=== PATIENT | female | born 1990 | race American Indian/Alaskan Native ===

== ENCOUNTER 2019-08-07 02:04 | Inpatient (IN) | payer OTHER ==
[2019-08-07] MEDS ORDERED: STADOL IV PRN (02:58)
[2019-08-07] MEDS ORDERED: NARCAN 0.4 MG/1 ML IV PRN (02:58)
[2019-08-07] MEDS ORDERED: MINERAL OIL PO PRN (02:58)
[2019-08-07] MEDS ORDERED: BRETHINE SUB-Q PRN (02:58)
[2019-08-07] MEDS ORDERED: SUBLIMAZE IV PRN (02:58)
[2019-08-07] MEDS ORDERED: ZOFRAN IV PRN ×2 (02:58→14:31)
[2019-08-07] MEDS ORDERED: BRETHINE IVP PRN (02:58)
[2019-08-07] MEDS ORDERED: XYLOCAINE 2% INFILTRATI ONE (02:58)
[2019-08-07] MEDS ORDERED: PITOCin/NS 20 UNIT/1000ML DRIP 20 UNITS/1,000 ML BAG IV SCH (03:00)
[2019-08-07] MEDS ORDERED: AMPICILLIN/NS 2 GM/100 ML 2 GM/100 ML BAG IV ONE ×2 (03:52→03:54)
[2019-08-07] MEDS: LACTATED RINGERS 1,000 ML IV SCH ×2 (04:05→06:27)
[2019-08-07 04:35] LABS: Hematocrit 38.4 % (30.3-42.9); Hemoglobin 13.3 gm/dl (10.1-14.3); Mean Corpuscular HGB Conc 35 % (30-34); Mean Corpuscular Volume 98 fl (79-97); Platelet Count 188 K/mm3 (140-440); Red Blood Count 3.91 M/mm3 (3.65-5.03); Red Cell Distribution Width 13.9 % (13.2-15.2)
[2019-08-07 04:47] LABS: Bilirubin,Urine NEG (Negative); Blood,Urine NEG (Negative); Calcium Oxalate Crystals,Urine 1+; Color,Urine Yellow (Yellow); Mucus,Urine 1+ /HPF; Protein,Urine <15 mg/dL mg/dL (Negative); Urobilinogen,Urine < 2.0 mg/dL (<2.0)
[2019-08-07] MEDS ORDERED: NARCAN 2 MG/2 ML IV PRN (05:47)
--- NOTE | 2019-08-07 05:47 | Anesthesia Consultation ---
Anesthesia Consult and Med Hx Date of service: 08/07/19 - Airway Anesthetic Teeth Evaluation: Good ROM Head & Neck: Adequate Mental/Hyoid Distance: Adequate Mallampati Class: Class II Intubation Access Assessment: Probably Good - Pulmonary Exam CTA: Yes - Cardiac Exam Cardiac Exam: RRR - Pre-Operative Health Status ASA Pre-Surgery Classification: ASA2 Proposed Anesthetic Plan: Epidural - Pulmonary Hx Asthma: No - Cardiovascular System Hx Hypertension: No - Central Nervous System Hx Seizures: No Hx Psychiatric Problems: No - Endocrine Hx Renal Disease: No Hx Hypothyroidism: No Hx Hyperthyroidism: No - Hematic Hx Anemia: No Hx Sickle Cell Disease: No - Other Systems Hx Alcohol Use: No
[2019-08-07] MEDS ORDERED: fentaNYL-BUPIV 2 MCG/ML-0.125% 200 MCG/100 ML BAG EPIDURAL SCH (06:00)
[2019-08-07] MEDS ORDERED: PITOCin/NS 30 UNIT/500ML 30 UNITS/500 ML BAG IV SCH (07:00)
--- NOTE | 2019-08-07 12:36 | History and Physical Report ---
History of Present Illness Date of examination: 08/07/19 Date of admission: 08/07/19 03:41 Chief complaint: labor History of present illness: This is a 29 yo at 40+4 weeks here for labor. She was seen by . Past History - Obstetrical History : 3 Medications and Allergies Allergies Allergy/AdvReac Type Severity Reaction Status Date / Time No Known Allergies Allergy Verified 08/07/19 03:06 Home Medications Medication Instructions Recorded Confirmed Last Taken Type Ferrous Sulfate 1 tab DAILY 08/07/19 08/07/19 1 Day Ago History ~08/06/19 Vitamin 1 tab PO DAILY 08/07/19 08/07/19 1 Day Ago History ~08/06/19 valACYclovir [Valtrex] 1 tab PO DAILY 08/07/19 08/07/19 1 Day Ago History ~08/06/19 Active Meds: Active Medications Butorphanol Tartrate (Stadol) 2 mg IV Q2H PRN PRN Reason: Pain , Severe (7-10) Ephedrine Sulfate (Ephedrine Sulfate) 10 mg IV Q2M PRN PRN Reason: Hypotension Fentanyl (Sublimaze) 100 mcg IV Q2H PRN PRN Reason: Labor Pain Last Admin: 08/07/19 04:25 Dose: 100 mcg Documented by: Oxytocin/Sodium Chloride (Pitocin/Ns 20 Unit/1000ml Drip) 20 units in 1,000 mls @ 125 mls/hr IV DIRECT TIFFANY Oxytocin/Sodium Chloride (Pitocin/Ns 30 Unit/500ml) 30 units in 500 mls @ 2 mls/hr IV TITR TIFFANY; Protocol Last Titration: 08/07/19 09:52 Dose: 8 ml/hr, 8 mls/hr Documented by: Lactated Ringer's (Lactated Ringers) 1,000 mls @ 125 mls/hr IV DIRECT TIFFANY Last Admin: 08/07/19 06:27 Dose: 125 mls/hr Documented by: Fentanyl/Bupivacaine/Sodium Chlor (Fentanyl-Bupiv 2 Mcg/Ml-0.125%) 200 mcg in 100 mls @ 12 mls/hr EPIDURAL TITR TIFFANY; Protocol Last Admin: 08/07/19 06:22 Dose: 12 mls/hr Documented by: Mineral Oil (Mineral Oil) 30 ml PO QHS PRN PRN Reason: Constipation Naloxone HCl (Narcan 2 Mg/2 Ml) 0.2 mg IV Q5M PRN PRN Reason: Respiratory sedation Ondansetron HCl (Zofran) 4 mg IV Q8H PRN PRN Reason: Nausea And Vomiting Terbutaline Sulfate (Brethine) 0.25 mg SUB-Q ONCE PRN PRN Reason: Hyperstimulation/Hypertonicity Terbutaline Sulfate (Brethine) 0.25 mg IVP ONCE PRN PRN Reason: Hyperstimulation/Hypertonicity Review of Systems All systems: negative - Vital Signs Vital signs: Vital Signs Temp Pulse Resp BP 98.8 F 85 20 139/86 08/07/19 02:17 08/07/19 02:17 08/07/19 02:17 08/07/19 02:17 Temp Pulse Resp BP Pulse Ox 98.5 F 93 H 18 137/73 100 08/07/19 11:30 08/07/19 12:30 08/07/19 07:05 08/07/19 12:27 08/07/19 12:30 - Physical Exam Breasts: Positive: normal Cardiovascular: Regular rate, Normal S1 Lungs: Positive: Clear to auscultation, Normal air movement Abdomen: Positive: normal appearance, soft, normal bowel sounds. Negative: dis tention, tenderness, guarding Genitourinary (Female): Positive: normal external genitalia, normal perenium Vagina: Positive: normal moisture Uterus: Positive: normal size, normal contour Deep Tendon Reflex Grade: Normal +2 - Obstetrical FHR: category 2 Cervical Dilatation: 9 Cervical Effacement Percentage: 100 station: -1 Uterine Contraction Pattern: Regular Uterine Tone Measurement Phase: Contraction Uterine Contraction Intensity: Strong/Firm Results Result Diagrams: 08/07/19 03:30 Abnormal lab results 08/07/19 Range/Units 03:30 MCV 98 H (79-97) fl MCH 34 H (28-32) pg MCHC 35 H (30-34) % All other labs normal. Assessment and Plan A/P IUP 40 weeks vertex GBS neg arom clear expect vaginal delivery
--- NOTE | 2019-08-07 12:42 | Event Note ---
Date: 08/07/19 Multiple decelerations noted. Pt found to be c/c/-1. Trial of pushing started. No descent. Decelerations resolved, category 1 FHT. Pt will labor down in exaggerated left lateral position.
[2019-08-07 14:25] LABS: Hepatitis C Virus Antibody Non-Reactive (NonReactive)
[2019-08-07 14:27] LABS: Hepatitis B Surface Antigen Non-Reactive (Negative)
[2019-08-07] MEDS ORDERED: CYTOTEC PR PRN (14:31)
[2019-08-07] MEDS ORDERED: DULCOLAX PR PRN (14:31)
[2019-08-07] MEDS ORDERED: BENADRYL PO PRN (14:31)
[2019-08-07] MEDS ORDERED: LANSINOH TP PRN (14:31)
[2019-08-07] MEDS ORDERED: MILK OF MAGNESIA PO PRN (14:31)
[2019-08-07] MEDS ORDERED: PHENERGAN PR PRN (14:31)
[2019-08-07] MEDS ORDERED: TUCKS PAD TP PRN (14:31)
[2019-08-07] MEDS ORDERED: PHENERGAN PO PRN (14:31)
[2019-08-07] MEDS ORDERED: TYLENOL PO PRN (14:31)
--- NOTE | 2019-08-07 14:40 | Procedure Note ---
OB Delivery Note - Delivery Date of Delivery: 08/07/19 Surgeon: SONG MENDEZ ([facility]) Estimated blood loss: 200cc - Vaginal Delivery presentation: vertex, compound (left hand) Delivery position: OA Intrapartum events: mult.variable deceleratio Delivery induction: none Delivery augmentation: rupture of membranes, pitocin Delivery monitor: external FHT, external uterine Route of delivery: Delivery placenta: spontaneous Delivery cord: 3 umbilical vessels Episiotomy: none Delivery laceration: 1st degree Delivery repair: vicryl Anesthesia: epidural Delivery comments: Maternal effort resulted in of viable male . Head delivered OA, restituted LOT, compound hand. Shoulders followed with gentle guidance. to maternal abdomen. Apneic, good tone, pink with blue extremities. Stimulated with no response. Cord clamped and cut by FOB. to warmer, blow-by oxygen administered. Apgars 5/8. Placenta delivered spontaneously and intact, 3VC. Pitocin infusing, fundus firm. 1st degree laceration noted, repaired to excellent hemostasis. Delayed trickling noted, resolved spontaneously. - A at 1 minute: 5 at 5 minutes: 8 Gender: Male
[2019-08-07] MEDS ORDERED: CYTOTEC ONE (14:41)
[2019-08-07] MEDS ORDERED: SODIUM CHLORIDE FLUSH SYRINGE 10 ML IV NR (15:00)
[2019-08-07] MEDS: COLACE PO SCH (21:48)
[2019-08-07] MEDS: FEOSOL PO SCH (21:48)
[2019-08-07] MEDS: IBUPROFEN PO SCH (23:30)
[2019-08-08 04:29] LABS: Hematocrit 34.1 % (30.3-42.9); Hemoglobin 11.8 gm/dl (10.1-14.3)
[2019-08-08] MEDS: IBUPROFEN PO SCH ×3 (06:05→14:41)
--- NOTE | 2019-08-08 08:43 | Progress Note ---
Assessment and Plan PPD1 s/p Labs and vital signs stable Discharge to home tomorrow Subjective - Subjective Date of service: 08/08/19 Principal diagnosis: s/p Interval history: Pt is PPD1 s/p Patient reports: appetite normal, voiding normally, pain well controlled, ambulating normally [place]: doing well, nursing well Objective - Vital Signs Latest vital signs: Vital Signs Temp Pulse Resp BP BP Pulse Ox 08/07/19 23:55 98.9 F 100 H 20 98/57 97 08/07/19 23:30 18 08/07/19 21:04 98.8 F 107 H 18 112/60 97 08/07/19 16:20 99.2 F 90 20 122/65 100 08/07/19 15:41 90 120/69 08/07/19 15:26 77 112/63 08/07/19 15:11 89 103/69 08/07/19 14:57 98 H 114/85 08/07/19 13:33 89 98 08/07/19 13:26 94 H 94 08/07/19 13:25 104 H 100 08/07/19 13:20 85 99 08/07/19 13:15 84 99 08/07/19 13:10 84 98 08/07/19 13:05 86 100 08/07/19 13:00 81 97 08/07/19 12:56 98 H 103/55 08/07/19 12:55 86 100 08/07/19 12:50 91 H 100 08/07/19 12:45 89 100 08/07/19 12:41 82 108/56 08/07/19 12:40 83 100 08/07/19 12:35 105 H 100 08/07/19 12:30 93 H 100 08/07/19 12:27 109 H 137/73 08/07/19 12:26 67 85 08/07/19 12:25 98 H 100 08/07/19 12:20 109 H 100 08/07/19 12:15 92 H 100 08/07/19 12:12 82 116/66 08/07/19 12:10 78 100 08/07/19 12:05 98 H 100 08/07/19 12:00 69 100 08/07/19 11:57 76 107/70 08/07/19 11:55 99 H 100 08/07/19 11:50 100 H 100 08/07/19 11:45 83 100 08/07/19 11:42 88 112/67 08/07/19 11:40 90 100 08/07/19 11:37 94 H 85 08/07/19 11:35 79 100 08/07/19 11:30 98.5 F 79 100 08/07/19 11:27 76 105/61 08/07/19 11:25 92 H 100 08/07/19 11:20 100 H 100 08/07/19 11:15 79 100 08/07/19 11:12 80 115/67 08/07/19 11:10 83 100 08/07/19 11:05 80 100 08/07/19 11:00 80 100 08/07/19 10:57 78 128/66 08/07/19 10:55 86 100 08/07/19 10:50 106 H 99 08/07/19 10:45 83 100 08/07/19 10:41 94 H 119/56 08/07/19 10:40 85 99 08/07/19 10:35 84 99 08/07/19 10:30 81 99 08/07/19 10:27 90 130/61 08/07/19 10:25 100 H 97 08/07/19 10:23 89 84 08/07/19 10:20 78 99 08/07/19 10:15 81 99 08/07/19 10:11 103 H 110/59 08/07/19 10:10 85 99 08/07/19 10:05 76 98 08/07/19 10:00 82 99 08/07/19 09:56 77 108/63 08/07/19 09:55 91 H 99 08/07/19 09:50 83 98 08/07/19 09:45 76 99 08/07/19 09:42 80 104/57 08/07/19 09:40 74 99 08/07/19 09:35 79 99 08/07/19 09:30 83 100 08/07/19 09:26 79 110/62 08/07/19 09:25 84 100 08/07/19 09:20 87 100 08/07/19 09:15 91 H 100 08/07/19 09:13 97.9 F 08/07/19 09:11 95 H 102/55 08/07/19 09:10 95 H 98 08/07/19 09:05 82 99 08/07/19 09:00 107 H 100 08/07/19 08:56 105 H 108/62 08/07/19 08:55 86 99 08/07/19 08:50 110 H 98 08/07/19 08:45 107 H 100 Intake and Output 08/07/19 08/08/19 08/08/19 23:59 07:59 15:59 Intake Total 720 Output Total 550 Balance -550 720 Intake: Oral 240 Intake, Free Water 480 Output: Urine 550 Void 550 Other: Total, Intake Amount 240 Total, Output Amount 550 # Voids Void 1 - Exam Lungs: Present: Normal air movement Abdomen: Present: normal appearance, soft Uterus: Present: normal, firm, fundal height at umbilicus Extremities: Present: normal
--- NOTE | 2019-08-08 08:45 | Discharge Summary ---
Providers - Providers Date of Admission: 08/07/19 03:41 Date of discharge: 08/09/19 Attending physician: TATA TEMPLE Primary care physician: TATA TEMPLE Hospitalization Reason for admission: active labor Delivery: Episiotomy: none Laceration: 1st degree Other procedures: none complications: none Discharge diagnosis: IUP at term delivered baby: male Hospital course: Pt was admitted in active labor. Augmented with AROM and Pitocin. of vialbe male infant. Hospital course uncomplicated. Met discharge criteria on PPD1. Condition at discharge: Good Disposition: DC-01 TO HOME OR SELFCARE Plan - Discharge Medications Prescriptions: Ferrous Sulfate [Ferrous Sulfate 324 MG] 324 mg PO BID #60 tablet. Ibuprofen [Motrin] 600 mg PO Q6H PRN #90 tablet PRN Reason: Pain - Provider Discharge Summary Activity: routine, no sex for 6 weeks, no heavy lifting 4 weeks, no strenuous exercise Diet: routine Instructions: routine Additional instructions: [] Smoking cessation referral if applicable(refer to patient education folder for contact #) [] Refer to [facility] Booklet Call your doctor immediately for: * Fever > 100.5 * Heavy vaginal bleeding ( >1 pad per hour) * Severe persistent headache * Shortness of breath * Reddened, hot, painful area to leg or breast * Drainage or odor from incision. * Keep incision clean and dry at all times and follow doctor's instructions regarding bathing/showering - Follow up plan Follow up: SONG MENDEZ CNM [Advanced Practice Nurse] - 6 Weeks (Please call [facility] to schedule appointment.)
[2019-08-08] MEDS: FEOSOL PO SCH ×2 (09:47→23:14)
[2019-08-08] MEDS: COLACE PO SCH ×2 (09:48→23:14)
[2019-08-08] MEDS ORDERED: BOOSTRIX IM ONE (14:31)
[2019-08-09] MEDS: IBUPROFEN PO SCH ×3 (05:12→11:20)
[2019-08-09] MEDS: FEOSOL PO SCH (11:20)
[2019-08-09] MEDS: COLACE PO SCH (11:20)
[2019-08-09 13:15] VITALS: BP 120/83
== END 2019-08-09 13:05 | disposition home or self-care (01) | DRG 807 ==
LOC: TRG 02:04 → LD 03:41 → OB 16:19
PROVIDERS: ADMIT Obstetrics & Gynecology; ATTEND Obstetrics & Gynecology
PROC: 10E0XZZ Delivery of Products of Conception, External Approach (ICD-10-PCS; principal; 2019-08-07)
PROC: 10907ZC Drainage of Amniotic Fluid, Therapeutic from Products of Conception, Via Natural or Artificial Opening (ICD-10-PCS; 2019-08-07)
PROC: 3E0R3BZ Introduction of Anesthetic Agent into Spinal Canal, Percutaneous Approach (ICD-10-PCS; 2019-08-07)
PROC: 00HU33Z Insertion of Infusion Device into Spinal Canal, Percutaneous Approach (ICD-10-PCS; 2019-08-07)
PROC: 0HQ9XZZ Repair Perineum Skin, External Approach (ICD-10-PCS; 2019-08-07)
PROC: 3E0234Z Introduction of Serum, Toxoid and Vaccine into Muscle, Percutaneous Approach (ICD-10-PCS; 2019-08-08)
DX: O32.6XX0 Maternal care for compound presentation, not applicable or unspecified (principal); Z37.0 Single live birth; Z3A.40 40 weeks gestation of pregnancy; Z23 Encounter for immunization; Z83.3 Family history of diabetes mellitus; O76 Abnormality in fetal heart rate and rhythm complicating labor and delivery; O70.0 First degree perineal laceration during delivery
CPT/HCPCS: 36415; 80074; 81001; 85014; 85018; 85027; 86592; 86850; 86900; 86901; G0378; J0290; J2590; J3010; J7120